=== PATIENT | male | born 1995 | race Caucasian/White ===

== ENCOUNTER 2017-03-07 12:37 | Emergency (ER) | payer BC ==
[~2017-03-07] VITALS: Wt 83.9 kg
[~2017-03-07 12:37] MED LIST: AUGMENTIN 875875 MG PO; MOTRIN800 MG PO; NKHM; VOLTAREN50 M1 PO
[2017-03-07 12:43] VITALS: BP 139/82
[2017-03-07] MEDS ORDERED: ZITHROMAX250 MG PO (13:48)
== END 2017-03-07 14:01 | disposition home or self-care (01) ==
LOC: ED 12:37
DX: J40 Bronchitis, not specified as acute or chronic (principal)

== ENCOUNTER → 2017-03-25 | Outpatient (CLI) | payer BC ==
[~2017-03-25] MED LIST changes: +ZITHROMAX250 MG PO
== END | disposition home or self-care (01) ==
LOC: RAD 16:16
DX: R05 Cough (principal); R06.02 Shortness of breath

== ENCOUNTER 2018-07-07 15:31 | Emergency (ER) | payer SELFPAY ==
[2018-07-07 15:32] VITALS: BP 150/82
== END 2018-07-07 16:44 ==
LOC: ED 15:31
DX: H92.02 Otalgia, left ear (principal); Z53.21 Procedure and treatment not carried out due to patient leaving prior to being seen by health care provider; Z91.030 Bee allergy status

== ENCOUNTER 2020-08-19 20:38 | Emergency (ER) | payer SELFPAY ==
[~2020-08-19] VITALS: Ht 172.7 cm; Wt 88.5 kg
[2020-08-19 21:03] VITALS: BP 114/50
== END 2020-08-19 22:34 | disposition home or self-care (01) ==
LOC: ED 20:38
PROVIDERS: Physician Assistant
DX: S30.861A Insect bite (nonvenomous) of abdominal wall, initial encounter (principal); F17.200 Nicotine dependence, unspecified, uncomplicated; Z91.013 Allergy to seafood; W57.XXXA Bitten or stung by nonvenomous insect and other nonvenomous arthropods, initial encounter; Y93.89 Activity, other specified; Y92.89 Other specified places as the place of occurrence of the external cause; Y99.8 Other external cause status

== ENCOUNTER 2021-08-12 04:55 | Emergency (ER) | payer SELFPAY ==
[~2021-08-12] VITALS: Ht 170.1 cm; Wt 88.5 kg
[2021-08-12 05:31] VITALS: BP 143/86
[2021-08-12] MEDS ORDERED: CEPHALEXIN500 M1 PO (06:27)
== END 2021-08-12 06:42 | disposition home or self-care (01) ==
LOC: ED 04:55
DX: L08.9 Local infection of the skin and subcutaneous tissue, unspecified (principal)

== ENCOUNTER 2021-09-16 08:20 | Emergency (ER) | payer SELFPAY ==
[~2021-09-16] VITALS: Wt 86.2 kg
[~2021-09-16 08:20] MED LIST changes: +CEPHALEXIN500 M1 PO
[2021-09-16 08:31] VITALS: BP 133/80
[2021-09-16] MEDS ORDERED: AUGMENTIN 875-875 MG PO (08:55)
== END 2021-09-16 09:00 | disposition home or self-care (01) ==
LOC: ED 08:20
DX: K04.7 Periapical abscess without sinus (principal); Z91.030 Bee allergy status

== ENCOUNTER 2021-10-09 08:45 | Emergency (ER) | payer SELFPAY ==
[~2021-10-09] VITALS: Ht 172.7 cm; Wt 86.2 kg
[~2021-10-09 08:45] MED LIST changes: +AUGMENTIN 875-875 MG PO
[2021-10-09 08:53] VITALS: BP 117/64
== END 2021-10-09 11:38 | disposition home or self-care (01) ==
LOC: ED 08:45
DX: H16.133 Photokeratitis, bilateral (principal); Z91.030 Bee allergy status

== ENCOUNTER 2022-02-06 07:34 | Emergency (ER) | payer SELFPAY ==
[2022-02-06 07:43] VITALS: BP 131/72
== END 2022-02-06 09:00 | disposition home or self-care (01) ==
LOC: ED 07:34
DX: J30.89 Other allergic rhinitis (principal)

== ENCOUNTER 2024-01-02 20:13 | Emergency (ER) | payer BC ==
[~2024-01-02] VITALS: Ht 170.1 cm; Wt 77.1 kg
[2024-01-02 20:23] VITALS: BP 112/70
[2024-01-02] MEDS ORDERED: SODIUM CHLORIDE 0.9% 1,000 ML IV ONE (20:30)
[2024-01-02] MEDS ORDERED: Ondansetron Hydrochloride 4 MG/2 ML VIAL IV ONE (20:35)
[2024-01-02 20:41] LABS: BASO % 0.3 % (0.0-1.0); EOS # 0.4 10*3/uL (0.0-0.4); EOS % 3.9 % (1.0-4.0); LYMPH # 2.9 10*3/uL (1.3-4.4); LYMPH % 30.6 % (27.0-41.0); MEAN CELL VOLUME 89.3 fl (80.0-94.0); MEAN CORPUSCULAR HGB 30.2 pg (27.0-31.0); MEAN CORPUSCULAR HGB CONC 33.8 g/dl (33.0-37.0); MEAN PLATELET VOLUME 10.5 fl (9.6-12.3); MONO # 1.3 10*3/uL (0.1-1.0); MONO % 13.2 % (3.0-9.0); NEUT # 4.9 10*3/uL (2.3-7.9); NEUT % 51.8 % (47.0-73.0); PLATELET COUNT AUTOMATED 220 10*3/uL (130-400); RED BLOOD COUNT 5.04 10*6/uL (4.50-5.90); RED CELL DISTRI WIDTH 11.6 % (0-14.5); WHITE BLOOD COUNT 9.5 10*3/uL (4.8-10.8)
[2024-01-02 21:00] LABS: BUN 15 mg/dl (9-23); CHLORIDE 105 mmol/L (98-107); LIPASE 31 U/L (12-53); POTASSIUM 3.5 mmol/L (3.4-5.1)
[2024-01-02] MEDS ORDERED: ONDANSETRON4 MG SL (21:28)
== END 2024-01-02 21:30 | disposition home or self-care (01) ==
LOC: ED 20:13
PROVIDERS: Nurse Practitioner Family
DX: B34.9 Viral infection, unspecified (principal); Z20.822 Contact with and (suspected) exposure to COVID-19; R11.2 Nausea with vomiting, unspecified; F90.9 Attention-deficit hyperactivity disorder, unspecified type; Z91.030 Bee allergy status; Z90.89 Acquired absence of other organs; Z98.890 Other specified postprocedural states

== ENCOUNTER 2024-09-02 08:31 | Emergency (ER) | payer BC ==
[~2024-09-02] VITALS: Ht 172.7 cm; Wt 73.9 kg
[~2024-09-02 08:31] MED LIST changes: +ONDANSETRON4 MG SL
[2024-09-02 08:40] VITALS: BP 131/68
[2024-09-02] MEDS ORDERED: Doxycycline Hyclate 100 MG CAP PO ONE (09:05)
[2024-09-02 09:21] LABS: BILIRUBIN Negative (Negative); BLOOD Trace-Intact (Negative); CLARITY Cloudy (Clear); COLOR Yellow (Yellow); GLUCOSE Negative (Negative); KETONE Trace (Negative); LEUKO ESTERASE 2+ (Negative); NITRITE Negative (Negative); PH 5.5 (4.5-8.0); SPECIFIC GRAVITY >= 1.030 (1.001-1.030)
[2024-09-02] MEDS ORDERED: Water, Sterile 10 ML VIAL ONE (09:25)
[2024-09-02 09:45] LABS: CALCIUM OXALATE CRYSTALS 1+; WBC TNTC wbc/hpf (0-5)
[2024-09-02 09:46] LABS: BACTERIA 1+; MUCOUS 1+
[2024-09-02] MEDS ORDERED: VIBRAMYCIN100 MG PO (09:57)
== END 2024-09-02 10:16 | disposition home or self-care (01) ==
LOC: ED 08:31
PROVIDERS: Emergency Medicine
DX: N39.0 Urinary tract infection, site not specified (principal); F90.9 Attention-deficit hyperactivity disorder, unspecified type; Z91.030 Bee allergy status; Z90.89 Acquired absence of other organs; Z98.890 Other specified postprocedural states

== ENCOUNTER 2024-09-22 16:17 | Emergency (ER) | payer BC ==
[~2024-09-22] VITALS: Ht 172.7 cm; Wt 75.7 kg
[~2024-09-22 16:17] MED LIST changes: +VIBRAMYCIN100 MG PO
[2024-09-22 16:25] VITALS: BP 137/75
== END 2024-09-22 17:27 | disposition home or self-care (01) ==
LOC: ED 16:17
DX: S60.221A Contusion of right hand, initial encounter (principal); F90.9 Attention-deficit hyperactivity disorder, unspecified type; Z91.030 Bee allergy status; Z90.89 Acquired absence of other organs; Z98.890 Other specified postprocedural states; W22.8XXA Striking against or struck by other objects, initial encounter; Y93.89 Activity, other specified; Y92.009 Unspecified place in unspecified non-institutional (private) residence as the place of occurrence of the external cause; Y99.8 Other external cause status

== ENCOUNTER 2024-12-01 16:05 | Emergency (ER) | payer BC ==
[~2024-12-01] VITALS: Ht 172.7 cm; Wt 78.0 kg
[2024-12-01 16:16] VITALS: BP 120/76
[2024-12-01] MEDS ORDERED: Tdap Vaccine 0.5 ML SYR (Adult Vaccine) IM ONE (16:40)
[2024-12-01] MEDS ORDERED: Lidocaine Hydrochloride 2% 10 ML AMP SC ONE (16:40)
[2024-12-01] MEDS ORDERED: Bacitracin Zinc 14 GM TUBE T ONE (17:20)
== END 2024-12-01 17:32 | disposition home or self-care (01) ==
LOC: ED 16:05
DX: S61.411A Laceration without foreign body of right hand, initial encounter (principal); F90.9 Attention-deficit hyperactivity disorder, unspecified type; Z91.030 Bee allergy status; Z90.89 Acquired absence of other organs; Z98.890 Other specified postprocedural states; W26.0XXA Contact with knife, initial encounter; Y93.G1 Activity, food preparation and clean up; Y92.89 Other specified places as the place of occurrence of the external cause; Y99.8 Other external cause status

== ENCOUNTER 2024-12-07 14:39 | Emergency (ER) | payer BC ==
[~2024-12-07] VITALS: Wt 72.6 kg
[2024-12-07 15:12] VITALS: BP 120/80
== END 2024-12-07 15:14 | disposition home or self-care (01) ==
LOC: ED 14:39
DX: S61.411D Laceration without foreign body of right hand, subsequent encounter (principal); F90.9 Attention-deficit hyperactivity disorder, unspecified type; W45.8XXD Other foreign body or object entering through skin, subsequent encounter; Z91.030 Bee allergy status; Z90.89 Acquired absence of other organs; Z98.890 Other specified postprocedural states

== ENCOUNTER 2024-12-28 08:14 | Emergency (ER) | payer BC ==
[~2024-12-28] VITALS: Ht 172.7 cm; Wt 77.1 kg
[2024-12-28 08:20] VITALS: BP 120/66
[2024-12-28] MEDS ORDERED: AMOX-CLAV 875-1 EACH PO (08:38)
== END 2024-12-28 08:45 | disposition home or self-care (01) ==
LOC: ED 08:14
DX: H66.91 Otitis media, unspecified, right ear (principal); F90.9 Attention-deficit hyperactivity disorder, unspecified type; Z91.030 Bee allergy status; Z90.89 Acquired absence of other organs; Z98.890 Other specified postprocedural states

== ENCOUNTER 2025-05-25 13:23 | Emergency (ER) | payer BC ==
[~2025-05-25] VITALS: Ht 172.7 cm; Wt 74.8 kg
[~2025-05-25 13:23] MED LIST changes: +AMOX-CLAV 875-1 EACH PO
[2025-05-25 13:40] VITALS: BP 131/82
[2025-05-25] MEDS ORDERED: Sulfamethoxazole/Trimethopri 1 TAB TAB PO ONE (13:55)
[2025-05-25] MEDS ORDERED: SEPTDS PO (13:59)
== END 2025-05-25 14:14 | disposition home or self-care (01) ==
LOC: ED 13:23
DX: L02.212 Cutaneous abscess of back [any part, except buttock and flank] (principal); Z91.030 Bee allergy status

== ENCOUNTER → 2025-06-26 | Day surgery (SDC) | payer BC ==
[~2025-06-26] VITALS: Ht 172.7 cm; Wt 77.1 kg
[~2025-06-26] MED LIST changes: +ACETAMINOPHEN 100 ML IV ONE; +Dexamethasone Sodium Phospha 4 MG/ML VIAL IV ONE; +HYDROCODONE-AC1 EAC1 PO; +Lactated Ringer's Solution 1,000 ML IV ONE; +Lidocaine Hydrochloride 30 ML VIAL ONE; +Lidocaine Hydrochloride 5 ML VIAL IV ONE; +Midazolam Hydrochloride 2 MG/2 ML VIAL IV ONE; +Ondansetron Hydrochloride 4 MG/2 ML VIAL IV ONE; +PROPOFOL 200 MG/20 ML VIAL IV ONE; +SEPTDS PO; +SEVOFLURANE 250 ML BOT INH ONE; +ceFAZolin sodium/sodium chlor 20 ML IV ONE
[2025-06-26 08:25] VITALS: BP 114/52
[2025-06-26 10:04] VITALS: BP 109/52
[2025-06-26 10:19] VITALS: BP 102/55
[2025-06-26 10:34] VITALS: BP 104/58
[2025-06-26 10:59] VITALS: BP 98/61
[2025-06-26 11:04] VITALS: BP 102/68
== END | disposition home or self-care (01) ==
LOC: SDC 06-23 10:15
PROVIDERS: ATTEND Surgery
DX: L05.91 Pilonidal cyst without abscess (principal); J40 Bronchitis, not specified as acute or chronic; Z79.899 Other long term (current) drug therapy; Z90.89 Acquired absence of other organs; Z98.890 Other specified postprocedural states; Z91.030 Bee allergy status

== ENCOUNTER 2025-07-06 21:17 | Emergency (ER) | payer BC ==
[~2025-07-06] VITALS: Ht 170.1 cm; Wt 79.4 kg
[~2025-07-06 21:17] MED LIST changes: -ACETAMINOPHEN 100 ML IV ONE; -Dexamethasone Sodium Phospha 4 MG/ML VIAL IV ONE; -Lactated Ringer's Solution 1,000 ML IV ONE; -Lidocaine Hydrochloride 30 ML VIAL ONE; -Lidocaine Hydrochloride 5 ML VIAL IV ONE; -Midazolam Hydrochloride 2 MG/2 ML VIAL IV ONE; -Ondansetron Hydrochloride 4 MG/2 ML VIAL IV ONE; -PROPOFOL 200 MG/20 ML VIAL IV ONE; -SEVOFLURANE 250 ML BOT INH ONE; -ceFAZolin sodium/sodium chlor 20 ML IV ONE
[2025-07-06 21:53] VITALS: BP 111/78
[2025-07-06] MEDS ORDERED: Acetaminophen/Hydrocodone 5 MG/325 MG TABLET PO ONE (22:20)
[2025-07-06 22:26] LABS: BASO # 0.1 10*3/uL (0.0-0.1); BASO % 0.5 % (0.0-1.0); EOS # 0.5 10*3/uL (0.0-0.4); EOS % 4.2 % (1.0-4.0); MEAN CELL VOLUME 91.9 fl (80.0-94.0); MEAN CORPUSCULAR HGB 31.2 pg (27.0-31.0); MEAN PLATELET VOLUME 11.3 fl (9.6-12.3); MONO # 1.5 10*3/uL (0.1-1.0); MONO % 11.6 % (3.0-9.0); NEUT # 7.5 10*3/uL (2.3-7.9); NEUT % 58.9 % (47.0-73.0); NUCLEATED RED BLOOD CELL 0.0 % (0.0-0.0); NUCLEATED RED BLOOD CELL 0.0 10*3/uL (0.0-0.0); PLATELET COUNT AUTOMATED 249 10*3/uL (130-400); RED CELL DISTRI WIDTH 11.8 % (0-14.5)
[2025-07-06 22:47] LABS: BUN 17 mg/dl (9-23)
[2025-07-06] MEDS ORDERED: VIBRAMYCIN100 MG PO (23:08)
== END 2025-07-06 23:23 | disposition home or self-care (01) ==
LOC: ED 21:17
PROVIDERS: Nurse Practitioner Family
DX: L05.91 Pilonidal cyst without abscess (principal); Z79.899 Other long term (current) drug therapy; Z91.030 Bee allergy status